=== PATIENT | female | born 1940 | race Caucasian/White ===

== ENCOUNTER → 2016-12-29 | Outpatient (CLI) | payer OTHER, MEDICARE ==
[~2016-12-29] VITALS: Ht 172.7 cm; Wt 77.1 kg
[~2016-12-29] MED LIST: ALPRAZOLAM 0.0.25 M1 PO; ASPIRIN325 PO; COUMADIN 2 MG TA2 M1 PO; COUMADIN 4 MG TA4 M1 PO; FISH OIL 1,0001 EAC5 PO; FLECAINIDE ACET50 M1 PO; INDAPAMIDE2.5 MG PO; MAXALT MLT ODT10 M1 PO; NORCO 5-325 TA1 EACH PO; PREMARIN0.625 MG PO; PROBIOTIC1 EAC1 PO; SIMVASTATIN10 MG PO; SUMYCIN 250250 MG PO; TOPROL XL50 MG PO; VIACTIV SOFT C1 EACH PO; VITAMIN D32000 UNI1 PO
--- NOTE | ~2016-12-29 | EKG ---
[place] [address] [facility] [place] [address] ELECTROCARDIOGRAM REPORT Name: AMBROSE AHUMADA Room #: REG CLI [facility]#: [id number] Admission: 12/29/16 Attend Phys: Jacky Anne MD Discharge: Date of : 36 Report #: [id number] THIS REPORT FOR: //name// [facility] Test Date: 2016-12-29 Test Time: 07:33:34 Pat Name: AMBROSE AHUMADA Department: Room: Gender: F Outside [employer] Consultant: Carmen STEINER : 1940 Requested By: Jacky Anne Order Number: [id number] MD: Rocky Garcia Measurements Intervals [place] Rate: 54 P: 69 NE: 236 QRS: 47 QRSD: 104 T: 63 QT: 462 QTc: 438 Interpretive Statements Sinus rhythm Prolonged NE interval Baseline wander in lead(s) V4 No previous ECG available for comparison Electronically Signed On 12-29-2016 8:56:42 CDT by Rocky Garcia [email or web address] <ELECTRONICALLY SIGNED> By: Rocky Garcia MD, [facility] 12/29/16 0856 0733 2 Rocky Garcia MD, FACC /EPI
--- NOTE | ~2016-12-29 | CATHLAB ---
[place] [address] [facility] [place] [address] INVASIVE PROCEDURE REPORT Name: BRANDYNAMBROSE CANDIS Room #: REG CL [facility]#: [id number] Admission: 12/29/16 Attend Phys: Jacky Anne MD Discharge: Date of : 36 Date of Service: 12/29/16 0837 Report #: [id number] THIS REPORT FOR: //name// CC: Jacky Cruz DATE OF SERVICE: 12/29/2016 CARDIAC CATHETERIZATION INDICATION: Unstable angina, abnormal nuclear stress test. Full risks, benefits and alternatives of cardiac catheterization were explained to the patient. All questions were answered. Informed consent was obtained. A Barbeau test was performed on the right radial artery. The right wrist area was prepped and draped in a sterile manner. Lidocaine was given subcutaneously. A 5-Algerian sheath was inserted into the right radial artery via modified Seldinger technique. Nitroglycerin and verapamil was injected through the sheath. CORONARY ANATOMY: Left main artery is a large caliber vessel, with no flow-limiting lesions. The LAD is a moderate sized caliber vessel, travelling down the anterior wall and wrapping around the apex. The distal segment of the LAD tapers down to a small sized caliber vessel. There is minimal luminal irregularities noted within the distal segment of the LAD. There were two diagonal arteries, with no flow-limiting lesions. The left circumflex artery is a moderate size caliber vessel, with no flow-limiting lesions. There was 1 moderate size obtuse marginal artery, with minimal luminal irregularities noted in the distal segment. The RCA is a dominant vessel, supplying a PDA and posterolateral branch. There were no flow-limiting lesions in the RCA. A left ventriculogram was performed revealing normal LV systolic function, ejection fraction of 55%. The LVEDP is 90 mmHg. There is no gradient across the outflow tract. IMPRESSION: 1. Angiographically normal coronary arteries. 2. Minimal luminal irregularities noted, as described above. [facility] [address] [place] [address] INVASIVE PROCEDURE REPORT Name: AMBROSE AHUMADA Room #: REG [facility]#: [id number] Admission: 12/29/16 Attend Phys: Jacky Anne MD Discharge: Date of : 36 Date of Service: 12/29/16 0837 Report #: [id number] 3. Normal LV systolic function. 4. Recommend medical therapy. <ELECTRONICALLY SIGNED> By: Jacky Anne MD 12/30/16 0754 0837 1117 Jacky Anne MD /nt
[2016-12-29 07:06] VITALS: BP 155/79
[2016-12-29 07:18] LABS: HEMOGLOBIN 13.1 gm/dL (12.0-15.0); MCH 30.7 pg (26.0-34.0); MCHC 33.6 g/dL (28.0-37.0); MCV 91.6 fL (80.0-100.0); RBC 4.26 mil/uL (4.20-5.00); RDW 14.7 % (10.5-14.5); WBC 12.4 thou/uL (4.0-11.0)
[2016-12-29 07:23] LABS: CALCIUM 8.6 mg/dL (8.5-10.1)
[2016-12-29 08:00] LABS: INR 1.3; PROTIME 13.2 Seconds (9.3-11.4)
== END | disposition home or self-care (01) ==
LOC: CATH 06:37
PROVIDERS: Internal Medicine Cardiovascular Disease
DX: I20.0 Unstable angina (principal)

== ENCOUNTER 2017-07-20 00:40 | Inpatient (IN) | payer OTHER, MEDICARE ==
[2017-07-05 13:44] LABS: HEMATOCRIT 40.8 % (37.0-47.0); HEMOGLOBIN 13.6 gm/dL (12.0-15.0); MCH 31.1 pg (26.0-34.0); MCHC 33.3 g/dL (28.0-37.0); MCV 93.4 fL (80.0-100.0); RBC 4.37 mil/uL (4.20-5.00); RDW 13.2 % (10.5-14.5); WBC 8.6 thou/uL (4.0-11.0)
[2017-07-05 13:45] LABS: URINE BILIRUBIN NEGATIVE (Negative); URINE BLOOD TRACE (Negative); URINE COLOR YELLOW; URINE GLUCOSE-RANDOM* NEGATIVE (Negative); URINE KETONES NEGATIVE (Negative); URINE PROTEIN (DIPSTICK) NEGATIVE (Negative); URINE SPECIFIC GRAVITY <= 1.005 (1.003-1.035); URINE UROBILINOGEN 0.2 E.U./dl (0.2-1.0)
[2017-07-05 13:46] LABS: URINE LEUKOCYTES-REFLEX TRACE (Negative)
[2017-07-05 13:52] LABS: ALBUMIN 3.5 g/dL (3.4-5.0); POTASSIUM 3.8 mmol/L (3.5-5.1)
[2017-07-05 13:57] LABS: INR 2.5; PROTIME 25.7 Seconds (9.3-11.4)
[~2017-07-20] VITALS: Ht 172.7 cm; Wt 77.1 kg
[2017-07-20] VITALS (7 sets, daily range): BP systolic 133–173; BP diastolic 63–90
--- NOTE | ~2017-07-20 | O ---
[facility] [place] [address] OPERATIVE REPORT Name: AMBROSE AHUMADA Room #: 408-P [facility] IN M.R.#: [id number] Admission: 07/20/17 Attend Phys: Stewart Kirkpatrick MD Discharge: 07/23/17 Date of : 36 Report #: [id number] THIS REPORT FOR: //name// CC: Stewart Cruz MD DATE OF SERVICE: 07/20/2017 PREOPERATIVE DIAGNOSIS: Right knee degenerative joint disease, severe. POSTOPERATIVE DIAGNOSIS: Right knee degenerative joint disease, severe. PROCEDURE: Right total knee arthroplasty. SURGEON: Stewart Kirkpatrick MD DIRECTOR OF VOCATIONAL TRAINING: RAVINDRA Deutsch INDICATIONS FOR DIRECTOR OF VOCATIONAL TRAINING: During the course of operation, extensive manipulation, retraction and limb positioning was required. This was afforded to me by my assistant loan processor. ANESTHESIA: General. INDICATIONS: See hospital H and P. IMPLANTS UTILIZED: We used Ramos and Nephew knee. We used a size 6 cruciate retaining porous legion femoral component press fit. We used a size 5 Violeta tibial base plate with a 9 mm insert and a 35 mm patella. DESCRIPTION OF PROCEDURE: After adequate general anesthesia had been obtained, the patient's right lower extremity was prepped and draped in the usual meticulous sterile fashion. Limb was exsanguinated with gravity, tourniquet inflated to 300 torr. Anterior midline incision was made, subQ divided sharply. Hemostasis obtained with electrocautery. Medial parapatellar incision was made. Infrapatellar fat pad excised. Medial release performed along the joint surface only. The knee flexed. Drill was used to drill distal femur. This hole was enlarged, irrigated, suctioned, and the intramedullary guide placed the full length of the femur. A distal femoral cutting guide pinned at appropriate location, distal femoral cut was made. Measuring device determined that a size 6 was appropriate size for this patient. We marked the distal femur, impacted the cutting guide into position. The anterior, posterior and chamfer cuts were made. Rongeur was used to remove additional osteophytes. At this time, the ACL was transected, tibia translated anteriorly, menisci were [facility] [address] [place] [address] OPERATIVE REPORT Name: BRANDYNAMBROSESYLVIA ALLENE Room #: 408-P DIS IN M.R.#: [id number] Admission: 07/20/17 Attend Phys: Stewart Kirkpatrick MD Discharge: 07/23/17 Date of : 36 Report #: [id number] excised. Drill was used to drill the drill central portion of the tibia. This hole was enlarged, irrigated, suctioned, and the intramedullary guide placed the full length of the tibia. Proximal tibial cutting guide placed at appropriate height. Proximal tibia cut was made. The 5 tray gave us the best coverage on the tibia. With trial components in position with a 9 spacer, she had the best flexion and extension gap. Patella tracked normally. At this time, the patella was measured, cutting guide clamped into place, patellar cut was made. A 35 template gave us the best coverage. Pedicles were drilled, trial components were put in place, knee was taken through several cycles of flexion, extension. The knee was very stable and tracked well, tibial tray rotation marked, distal femur punched. Trial components were removed. Tibial keel cuts were made. Bone plugs were placed in proximal tibia and distal femur. The knee was irrigated with both pulse lavage and antibiotic irrigation. The cement was vacuum mixed and when it reached the appropriate consistency, the knee was thoroughly dried. The tibial tray was cemented in place. Excess cement removed. Polyethylene was impacted in place and the femur impacted in place and knee was taken out to 30 degrees of flexion with uniform compression placed across components. Patellar button was then cemented into place and again excess cement was removed. We placed drains deep and superficial. Irrigation was placed in the wound and allowed to rest in the wound until the cement fully cured. When it had done so, the knee was dried and inspected. The retinacular layer closed with combination of interrupted [id number] #1 Vicryl, as well as running #1 Tevdek. SubQ closed with 2-0 Monocryl, skin closed with nica. Sterile compressive dressing was complied. Tourniquet deflated. <ELECTRONICALLY SIGNED> By: Stewart Kirkpatrick MD 07/25/17 2123 1033 1126 Stewart Kirkpatrick MD /nt
[~2017-07-20 00:40] MED LIST changes: +FLECAINIDE PO; +FLOVENT HFA 4444 MCG INH; +NASACORT10.8 ML NASAL; +SINGULAIR 10 MG10 M1 PO
[2017-07-20 07:43] LABS: APTT 26.1 Seconds (24.5-32.8); INR 1.1; PROTIME 10.9 Seconds (9.3-11.4)
[2017-07-21] VITALS: BP 144/58
[2017-07-21 04:00] VITALS: BP 132/66
[2017-07-21 05:59] LABS: HEMATOCRIT 38.4 % (37.0-47.0); HEMOGLOBIN 12.8 gm/dL (12.0-15.0); MCH 31.4 pg (26.0-34.0); MCHC 33.5 g/dL (28.0-37.0); MCV 93.9 fL (80.0-100.0); RBC 4.09 mil/uL (4.20-5.00); RDW 13.3 % (10.5-14.5)
[2017-07-21 08:00] VITALS: BP 116/51
[2017-07-21 16:20] LABS: INR 1.1; PROTIME 10.5 Seconds (9.3-11.4)
[2017-07-21 16:48] VITALS: BP 106/40
[2017-07-21 20:00] VITALS: BP 138/54
[2017-07-22 04:33] VITALS: BP 111/56
[2017-07-22] MEDS ORDERED: PERCOCET 10-321 EACH PO (06:49)
[2017-07-22] MEDS ORDERED: OXYCONTIN10 M1 PO (06:49)
[2017-07-22 07:45] LABS: HEMATOCRIT 36.8 % (37.0-47.0); HEMOGLOBIN 12.3 gm/dL (12.0-15.0); MCH 31.5 pg (26.0-34.0); MCHC 33.5 g/dL (28.0-37.0); RBC 3.91 mil/uL (4.20-5.00); RDW 13.1 % (10.5-14.5); WBC 10.8 thou/uL (4.0-11.0)
[2017-07-22 08:01] LABS: INR 1.6; PROTIME 16.3 Seconds (9.3-11.4)
[2017-07-22 19:50] VITALS: BP 154/51
[2017-07-23 04:45] VITALS: BP 111/57
[2017-07-23 07:01] VITALS: BP 148/58
[2017-07-23 07:34] LABS: HEMATOCRIT 37.4 % (37.0-47.0); HEMOGLOBIN 12.5 gm/dL (12.0-15.0); MCH 31.3 pg (26.0-34.0); MCHC 33.4 g/dL (28.0-37.0); MCV 93.6 fL (80.0-100.0); RDW 13.4 % (10.5-14.5)
[2017-07-23 07:49] LABS: INR 1.7; PROTIME 16.4 Seconds (9.3-11.4)
[2017-07-23 13:36] VITALS: BP 148/58
== END 2017-07-23 14:10 | disposition home health service (06) | DRG 470 ==
LOC: PRE 00:40 → TBA 05:10 → 4N 05:10 → PRE 12:53 → 4N 14:44 → ENTRNSPT 07-23 14:05 → EDTRNSPTSTS 07-23 14:09 → 4N 07-23 14:10
PROVIDERS: Orthopaedic Surgery
PROC: 0SRC0J9 Replacement of Right Knee Joint with Synthetic Substitute, Cemented, Open Approach (ICD-10-PCS; principal; 2017-07-20)
DX: M17.11 Unilateral primary osteoarthritis, right knee (principal); Z88.6 Allergy status to analgesic agent; Z88.1 Allergy status to other antibiotic agents; Z79.899 Other long term (current) drug therapy
CPT/HCPCS: 10790; 50010; 50101; 50415; 50954; 51130; 51225; 51320; 51412; 51771; 52001; 53078; 53364; 56525; 56527; 62110; 62850; 64042; 64043; 65085; 70005